=== PATIENT | male | born 1965 | race Caucasian/White ===

== ENCOUNTER 2024-02-14 01:35 | Emergency (ER) | payer OTHER ==
[~2024-02-14] VITALS: Ht 172.7 cm; Wt 113.4 kg
[2024-02-14 01:50] VITALS: BP 146/102; PULSE 106; RESP 24; TEMP 98.6; O2SAT 94; O2SAT 96
[2024-02-14 02:34] LABS: BASOPHILS # (AUTO) 0.1 K/uL (0.00-0.22); BASOPHILS % (AUTO) 0.8 % (0.0-2.0); EOSINOPHILS % (AUTO) 0.7 % (0.0-4.0); HEMATOCRIT 43.4 % (36-52); HEMOGLOBIN 14.5 g/dL (12.0-18.0); LYMPHOCYTES # (AUTO) 2.9 K/uL (2.0-11.5); LYMPHOCYTES % (AUTO) 43.2 % (20.5-51.1); MEAN CORPUSCULAR HEMOGLOBIN 30 pg (27-31); MEAN CORPUSCULAR HGB CONC 33 g/dL (33-37); MEAN CORPUSCULAR VOLUME 89.1 fL (80-94); MONOCYTES # (AUTO) 0.7 K/uL (0.8-1.0); MONOCYTES % (AUTO) 10.1 % (1.7-9.3); NEUTROPHILS # (AUTO) 3.1 K/uL (1.8-7.7); NEUTROPHILS % (AUTO) 45.2 % (42.2-75.2); PLATELET COUNT (AUTO) 190 K/uL (140-450); RED BLOOD CELL COUNT(AUTO) 4.88 MIL/uL (4.20-6.10); RED CELL DISTRIBUTION WIDTH 16.7 % (11.6-13.7); WHITE BLOOD COUNT (AUTO) 6.8 K/uL (4.8-10.8)
[2024-02-14 02:43] LABS: APPEARANCE,URINE CLEAR (CLEAR); BILIRUBIN,URINE NEGATIVE (NEGATIVE); BLOOD, URINE NEGATIVE (NEGATIVE); COLOR,URINE YELLOW (YELLOW); LEUKOCYTE ESTERASE ,URINE NEGATIVE (NEGATIVE); NITRITE, URINE NEGATIVE (NEGATIVE); PROTEIN,URINE TRACE (NEGATIVE); UGLUCOSE NEGATIVE (NEGATIVE)
[2024-02-14 02:51] LABS: ALBUMIN 3.5 g/dL (3.4-5.0); ANION GAP 17.7 (8-16); CALCIUM 8.8 mg/dL (8.5-10.1); CARBON DIOXIDE 25.3 mmol/L (21-32); CREATININE 1.1 mg/dL (0.6-1.3); TOTAL BILIRUBIN 0.4 mg/dL (0.0-1.0); TOTAL PROTEIN, SERUM 7.6 g/dL (6.4-8.2)
[2024-02-14 02:52] LABS: AMPHETAMINE, URINE NEGATIVE ng/ml (NEG <=1000); BARBITURATE, URINE NEGATIVE ng/ml (NEG <=200); BENZODIAZEPINE, URINE NEGATIVE ng/mL (NEG <=200); CANNABINOID, URINE NEGATIVE ng/mL (NEG <=50); COCAINE, URINE NEGATIVE ng/mL (NEG <=300); OPIATE, URINE NEGATIVE ng/mL (NEG <=2000); PHENCYCLIDINE SCREEN,URINE NEGATIVE ng/mL (NEG <=25)
[2024-02-14] MEDS: NACL 0.9% 1,000 ML IV ONE (03:00)
[2024-02-14 03:13] LABS: FLU A ANTIGEN negative (NEGATIVE); FLU B ANTIGEN NEGATIVE (NEGATIVE)
[2024-02-14 03:20] LABS: SALICYLATE < 2.8 mg/dL (2.8-20.0)
[2024-02-14 03:21] LABS: ACETAMINOPHEN < 0.5 ug/ml (10-30)
[2024-02-14 04:20] VITALS: O2SAT 96
[2024-02-14] MEDS ORDERED: KETOROLAC 30 MG/ML VIAL ONE (04:38)
[2024-02-14] MEDS: KETOROLAC 30 MG/ML VIAL IVP ONE (04:40)
[2024-02-14] MEDS ORDERED: ALUMINUM HYD/MAG/SIMETHICONE 30 ML UDC ONE (06:14)
[2024-02-14] MEDS ORDERED: DICYCLOMINE HCL LIQUID 10 MG/5 ML UDC ONE (06:14)
[2024-02-14] MEDS: ONDANSETRON 4 MG/2 ML VIAL IVP ONE (06:17)
[2024-02-14] MEDS: DICYCLOMINE HCL LIQUID 20 MG, ALUMINUM HYD/MAG/SIMETHICONE 30 ML, LIDOCAINE VISCOUS 2% ... PO ONE (06:20)
[2024-02-14] MEDS: POTASSIUM CHLORIDE 10 MEQ TABER PO ONE (07:42)
[2024-02-14] MEDS: IBUPROFEN 600 MG TAB PO ONE (08:45)
[2024-02-14] MEDS: FAMOTIDINE 20 MG TAB PO ONE (08:50)
[2024-02-14 09:00] VITALS: O2SAT 98
[2024-02-14] MEDS ORDERED: CHLO-757 PO (09:27)
[2024-02-14] MEDS ORDERED: ESCI10TA PO (09:27)
[2024-02-14] MEDS: ALUMINUM HYD/MAG/SIMETHICONE 30 ML UDC PO ONE (10:06)
[2024-02-14] MEDS: ACETAMINOPHEN 325 MG TAB PO ONE (11:00)
[2024-02-14 11:09] VITALS: BP 147/95; PULSE 95; RESP 20; TEMP 97.6; O2SAT 98
== END 2024-02-14 11:19 | disposition home or self-care (01) ==
LOC: MED 01:35
DX: F10.129 Alcohol abuse with intoxication, unspecified (principal); R45.851 Suicidal ideations; R50.9 Fever, unspecified; R11.2 Nausea with vomiting, unspecified; Z20.822 Contact with and (suspected) exposure to COVID-19; Z98.890 Other specified postprocedural states; Y90.8 Blood alcohol level of 240 mg/100 ml or more
CPT/HCPCS: 36415; 80053; 80305; 81003; 85025; 87426; 87804; 96361; 96374; 96375; 99285; G0480; G0482; J1885; J2405; J7030